=== PATIENT | male | born 1975 | race Two or more races ===

== ENCOUNTER 2022-09-20 01:13 | Inpatient (IN) | payer OTHER ==
[~2022-09-20] VITALS: Ht 167.6 cm; Wt 111.1 kg
[2022-09-20] MEDS ORDERED: TOPROL XL25 M1 (01:25)
[2022-09-20] MEDS ORDERED: COZAAR50 MG (01:25)
[2022-09-20] MEDS ORDERED: AMLODIPINE-OLM1 EACH (01:26)
[2022-09-20] MEDS ORDERED: ECOTRIN81 MG (01:27)
[2022-09-20] MEDS ORDERED: HYDRODIURIL12.5 MG (01:27)
--- NOTE | 2022-09-20 01:28 | NUR ---
PACIENTE ALERTA Y ORIENTADO X3. REFIERE VENIR POR PICADURA DE INSECTOS EN LA PIERNA IZQUIERDA LA CUAL LE CAUSO ENROJECIMIENTO EN EL AREA Y EDEMA DESDE CHER. AREA AFECTADA CALIENTE AL TACTO.
--- NOTE | 2022-09-20 03:56 | NUR ---
RN LOREDO ORIENTA A PTE SOBRE TRATAMIENTO E INSTRUCCIONES A SEGUIR, EL REFIERE ENTENDER. SE LE COLECTA MUESTRAS, SE CANALIZA Y SE ADMINISTRA MEDICAMENTO CHARANJIT ORDEN MEDICA. PENDIENTE COLBY X
--- NOTE | 2022-09-20 07:41 | NUR ---
SE RECIBE PTE ALERTA Y ORIENTADO POR 3 EN FLY CON BARANDAS ELEVADA Y TIMBRE ACCESIBLE PTE NO PRESENTA DOLOR SE OBSERVA VENOPUNCION PATENTE Y CORRIE DE EDEMA PTE SE MANTIENE EN OBSERVACION Y BAJO TRATAMIENTO. PTE EN ESPERA KATHY SE OBSERVA LA PIERNA IZQUIERDA CON CELULITIS ENROJECIDA
== END 2022-09-23 14:36 | disposition home or self-care (01) | DRG 603 ==
LOC: ER 01:13 → MEDJ 12:47 → SEC-K 12:47 → MEDJ 13:53
PROVIDERS: ADMIT Internal Medicine; ATTEND Internal Medicine
PROC: 8E0ZXY6 Isolation (ICD-10-PCS; principal; 2022-09-20)
PROC: B54CZZZ Ultrasonography of Left Lower Extremity Veins (ICD-10-PCS; 2022-09-22)
DX: L03.116 Cellulitis of left lower limb (principal); I10 Essential (primary) hypertension; I73.9 Peripheral vascular disease, unspecified; Z20.822 Contact with and (suspected) exposure to COVID-19